=== PATIENT | male | born 1995 | race Caucasian/White ===

== ENCOUNTER 2017-02-18 21:04 | Emergency (ER) | payer OTHER ==
[2017-02-18 22:09] VITALS: BP 133/65
== END 2017-02-18 22:09 | disposition home or self-care (01) ==
LOC: ED 21:04
DX: S93.601A Unspecified sprain of right foot, initial encounter (principal); X37.1XXA Tornado, initial encounter; Y93.89 Activity, other specified; Y92.89 Other specified places as the place of occurrence of the external cause; Y99.0 Civilian activity done for income or pay
CPT/HCPCS: Q0092